=== PATIENT | female | born 1970 | race Caucasian/White ===

== ENCOUNTER → 2019-01-21 | Outpatient (REF) | payer OTHER ==
[2019-01-21 16:54] LABS: ALBUMIN 3.9 GM/DL (3.2-5.2); ALT/SGPT 19 U/L (12-78); BILIRUBIN,TOTAL 0.6 MG/DL (0.2-1.0); BLOOD UREA NITROGEN 16 MG/DL (7-18); CALCIUM LEVEL 9.2 MG/DL (8.5-10.1); CARBON DIOXIDE LEVEL 29 MEQ/L (21-32); CHLORIDE LEVEL 103 MEQ/L (98-107); CHOLESTEROL LEVEL 188 MG/DL (<200); CHOLESTEROL RISK RATIO 2.647 (<5); CREATININE FOR GFR 0.72 MG/DL (0.55-1.30); GLOMERULAR FILTRATION RATE > 60.0 (>58); GLUCOSE, FASTING 86 MG/DL (70-100); HDL CHOLESTEROL 71 MG/DL (>40); LDL CHOLESTEROL 104 MG/DL (<100); NON-HDL-C 117 MG/DL; POTASSIUM SERUM 4.1 MEQ/L (3.5-5.1); SODIUM LEVEL 139 MEQ/L (136-145); THYROID STIMULATING HORMONE 0.457 uIU/ML (0.358-3.740); TOTAL PROTEIN 6.9 GM/DL (6.4-8.2); TRIGLYCERIDES LEVEL 66 MG/DL (<150)
== END ==
LOC: M SFHCCLAY 12:42
PROVIDERS: ATTEND Family Medicine
DX: Z00.00 Encounter for general adult medical examination without abnormal findings (principal); F32.9 Major depressive disorder, single episode, unspecified

== ENCOUNTER → 2020-06-30 | Outpatient (REF) | payer OTHER ==
[2020-06-30 17:00] LABS: HEMATOCRIT 37.4 % (36.0-47.0); HEMOGLOBIN 12.2 g/dl (12.0-15.5); MEAN CORPUSCULAR HEMOGLOBIN 29.5 pg (27.0-33.0); MEAN CORPUSCULAR HGB CONC 32.6 g/dl (32.0-36.5); MEAN CORPUSCULAR VOLUME 90.3 fl (80.0-96.0); PLATELET COUNT, AUTOMATED 218 10^3/uL (150-450); RED BLOOD COUNT 4.14 10^6/uL (4.00-5.40); WHITE BLOOD COUNT 4.2 10^3/uL (4.0-10.0)
[2020-06-30 17:11] LABS: INR 0.98; PROTHROMBIN TIME 13.2 SECONDS (11.8-14.0)
[2020-06-30 17:12] LABS: PARTIAL THROMBOPLASTIN TIME 33.6 SECONDS (25.0-38.4)
== END ==
LOC: M LABDRAWC 13:50
PROVIDERS: ATTEND Family Medicine
DX: R23.3 Spontaneous ecchymoses (principal)

== ENCOUNTER → 2020-11-24 | Outpatient (CLI) | payer OTHER ==
[~2020-11-24] MED LIST: BUPR300T92 PO; ESCI10TA16 PO; METR0.7534 TOP; SPIR50TA4 PO; TRET0.1G10 TOP
== END ==
LOC: M LABSMTC 11:45
PROVIDERS: ATTEND Anesthesiology
DX: Z01.812 Encounter for preprocedural laboratory examination (principal); Z20.822 Contact with and (suspected) exposure to COVID-19

== ENCOUNTER 2020-11-28 10:06 | Day surgery (SDC) | payer OTHER ==
[~2020-11-28] VITALS: Ht 172.7 cm; Wt 64.4 kg
[~2020-11-28 10:06] MED LIST changes: +LIDOCAINE 2% 100MG/5ML SDV (FOR ANES.) As Ordered ONE; +NS 1,000 ML IV ONE; +propofoL 200 MG/20 ML VIAL As Ordered ONE
--- NOTE | 2020-11-28 12:03 | ROOR ---
Patient Name: Raquel Jason Procedure Date: 11/28/2020 11:30 AM Date of : 1970 Age: 50 Room: [facility] Gender: Female Note Status: Finalized Procedure: Colonoscopy Indications: Change in bowel habits Providers: Endy DAVIS MD Referring MD: Nile Ball MD Requesting Provider: Medicines: Monitored Anesthesia Care Complications: No immediate complications. Procedure: Pre-Anesthesia Assessment: - The heart rate, respiratory rate, oxygen saturations, blood pressure, adequacy of pulmonary ventilation, and response to care were monitored throughout the procedure. The Colonoscope was introduced through the anus and advanced to 10 cm into the ileum. The colonoscopy was performed without difficulty. The patient tolerated the procedure well. The quality of the bowel preparation was good. Findings: The perianal and digital rectal examinations were normal. A diminutive polyp was found in the ascending colon. The polyp was sessile. The polyp was removed with a cold snare. Resection and retrieval were complete. Mild sigmoid diverticulosis and small internal hemorrhoids. The exam was otherwise without abnormality on direct and retroflexion views. Impression: - One diminutive polyp in the ascending colon, removed with a cold snare. Resected and retrieved. - Minimal sigmoid diverticulosis and small internal hemorrhoids. - The examination was otherwise normal on direct and retroflexion views. Recommendation: - Repeat colonoscopy in 5 years for surveillance. - Use fiber, for example Citrucel, Fibercon, Konsyl or Metamucil. Procedure Code(s): --- Professional --- 06615, Colonoscopy, flexible; with removal of tumor(s), polyp(s), or other lesion(s) by snare technique Diagnosis Code(s): --- Professional --- R19.4, Change in bowel habit K63.5, Polyp of colon CPT copyright 2019 [employer]. All rights reserved. The codes documented in this report are preliminary and upon mathematics education professor review may be revised to meet current compliance requirements. Endy Davis MD Endy DAVIS MD 11/28/2020 12:02:53 PM Electronically signed by Endy DAVIS MD Number of Addenda: 0 Note Initiated On: 11/28/2020 11:30 AM Estimated Blood Loss: Estimated blood loss: none.
[2020-11-28 12:25] VITALS: BP 117/63
== END 2020-11-28 12:36 | disposition home or self-care (01) ==
LOC: M OPP 10:06
PROVIDERS: ATTEND Internal Medicine Gastroenterology
DX: R19.4 Change in bowel habit (principal); K63.5 Polyp of colon; K57.30 Diverticulosis of large intestine without perforation or abscess without bleeding; K64.8 Other hemorrhoids; K58.9 Irritable bowel syndrome, unspecified; F41.9 Anxiety disorder, unspecified; F32.9 Major depressive disorder, single episode, unspecified; G43.909 Migraine, unspecified, not intractable, without status migrainosus; Q79.60 Ehlers-Danlos syndrome, unspecified; Z79.899 Other long term (current) drug therapy

== ENCOUNTER → 2022-06-04 | Outpatient (CLI) | payer OTHER ==
[~2022-06-04] MED LIST changes: -LIDOCAINE 2% 100MG/5ML SDV (FOR ANES.) As Ordered ONE; -NS 1,000 ML IV ONE; -propofoL 200 MG/20 ML VIAL As Ordered ONE
== END ==
LOC: M CARPUL 10:40
PROVIDERS: ATTEND Family Medicine
DX: Q79.60 Ehlers-Danlos syndrome, unspecified (principal); I08.3 Combined rheumatic disorders of mitral, aortic and tricuspid valves

== ENCOUNTER → 2023-05-09 | Outpatient (CLI) | payer OTHER | LOC: M RAD 11:49 | PROVIDERS: ATTEND Physician Assistant | DX: R59.0 Localized enlarged lymph nodes (principal) ==

== ENCOUNTER → 2023-11-21 | Outpatient (CLI) | payer OTHER ==
[~2023-11-21] VITALS: Ht 172.7 cm; Wt 61.0 kg
[~2023-11-21] MED LIST changes: +LIDOCAINE 1% MDV 20ML VIAL As Ordered ONE
== END ==
LOC: M RAD 09:46
PROVIDERS: ATTEND Surgery
DX: D48.5 Neoplasm of uncertain behavior of skin (principal); R22.2 Localized swelling, mass and lump, trunk

== ENCOUNTER → 2024-05-05 | Outpatient (REF) | payer OTHER ==
[~2024-05-05] MED LIST changes: +BUPR-597 PO; -BUPR300T92 PO; -LIDOCAINE 1% MDV 20ML VIAL As Ordered ONE; -METR0.7534 TOP; +METR60GE3 TOP
[2024-05-05 17:26] LABS: HEMATOCRIT 39.6 % (36.0-47.0); HEMOGLOBIN 13.1 g/dl (12.0-15.5); MEAN CORPUSCULAR HEMOGLOBIN 30.2 pg (27.0-33.0); MEAN CORPUSCULAR HGB CONC 33.1 g/dl (32.0-36.5); MEAN CORPUSCULAR VOLUME 91.2 fl (80.0-96.0); PLATELET COUNT, AUTOMATED 362 10^3/uL (150-450); RED BLOOD COUNT 4.34 10^6/uL (4.00-5.40); WHITE BLOOD COUNT 5.7 10^3/uL (4.0-10.0)
[2024-05-05 17:29] LABS: ALBUMIN 4.1 G/DL (3.2-5.2); ALKALINE PHOSPHATASE 73 U/L (46-116); ALT/SGPT 21 U/L (7.0-40); AST/SGOT 14 U/L (<34); BILIRUBIN,TOTAL 0.7 MG/DL (0.3-1.2); BLOOD UREA NITROGEN 19 MG/DL (9-23); CALCIUM LEVEL 10.2 MG/DL (8.5-10.1); CARBON DIOXIDE LEVEL 31 MMOL/L (20-31); CHLORIDE LEVEL 103 MMOL/L (98-107); CHOLESTEROL LEVEL 189 MG/DL (<200); CHOLESTEROL RISK RATIO 3.28 (<5); CREATININE FOR GFR 0.94 MG/DL (0.55-1.30); GLOMERULAR FILTRATION RATE > 60.0 (>51); GLUCOSE, FASTING 89 MG/DL (60-100); HDL CHOLESTEROL 57.5 MG/DL (>40); LDL CHOLESTEROL 110.5 MG/DL (<100); NON-HDL-C 131.5 MG/DL; POTASSIUM SERUM 5.9 MMOL/L (3.5-5.1); SODIUM LEVEL 138 MMOL/L (136-145); TOTAL PROTEIN 7.1 G/DL (5.7-8.2); TRIGLYCERIDES LEVEL 105 MG/DL (<150)
== END ==
LOC: M SFHCCLAY 11:08
PROVIDERS: ATTEND Family Medicine
DX: Z00.00 Encounter for general adult medical examination without abnormal findings (principal); F32.9 Major depressive disorder, single episode, unspecified; K58.9 Irritable bowel syndrome, unspecified

== ENCOUNTER → 2024-05-08 | Outpatient (REF) | payer OTHER ==
[2024-05-08 17:36] LABS: BLOOD UREA NITROGEN 13 MG/DL (9-23); CALCIUM LEVEL 9.7 MG/DL (8.5-10.1); CARBON DIOXIDE LEVEL 29 MMOL/L (20-31); CHLORIDE LEVEL 102 MMOL/L (98-107); CREATININE FOR GFR 0.91 MG/DL (0.55-1.30); GLOMERULAR FILTRATION RATE > 60.0 (>51); GLUCOSE, FASTING 128 MG/DL (60-100); POTASSIUM SERUM 4.3 MMOL/L (3.5-5.1); PTH INTACT 42.8 PG/ML (18.5-88.0); SODIUM LEVEL 137 MMOL/L (136-145)
== END ==
LOC: M SFHCCLAY 11:26
PROVIDERS: ATTEND Family Medicine
DX: Z12.31 Encounter for screening mammogram for malignant neoplasm of breast (principal); E83.52 Hypercalcemia; E87.5 Hyperkalemia

== ENCOUNTER → 2025-01-21 | Outpatient (REF) | payer OTHER | LOC: M SFHCCLAY 16:25 | PROVIDERS: ATTEND Physician Assistant | DX: R82.998 Other abnormal findings in urine (principal) ==

== ENCOUNTER → 2025-10-12 | Outpatient (REF) | payer OTHER ==
[~2025-10-12] MED LIST changes: -BUPR-597 PO; +BUPR-766 PO
[2025-10-14 13:50] LABS: HPV APTIMA Not Detected (Not Detected)
== END ==
LOC: M SFHCWAGY 16:43
PROVIDERS: ATTEND Physician Assistant
DX: Z01.419 Encounter for gynecological examination (general) (routine) without abnormal findings (principal); R30.0 Dysuria
CPT/HCPCS: 87086; 87624; G0123